=== PATIENT | male | born 1945 | race Caucasian/White ===

== ENCOUNTER 2016-11-09 09:55 | Inpatient (IN) | payer SELFPAY ==
[~2016-11-09] VITALS: Ht 144.8 cm; Wt 53.3 kg
[2016-11-09] MEDS ORDERED: TIMO.25OS OU (10:07)
[2016-11-09] MEDS ORDERED: HYDR10TA31 PO (10:07)
[2016-11-09] MEDS ORDERED: ISOS20TA9 PO (10:07)
[2016-11-09] MEDS ORDERED: ASPI-1093 PO (10:07)
[2016-11-09] MEDS ORDERED: CARV6 PO (10:07)
[2016-11-09] MEDS ORDERED: LISI-661 PO (10:07)
[2016-11-09 10:23] LABS: BASOPHILS # (AUTO) 0.02 K/uL (0.00-0.20); BASOPHILS % (AUTO) 0.3 % (0.0-2.0); EOSINOPHILS # (AUTO) 0.17 K/uL (0.00-0.70); EOSINOPHILS % (AUTO) 2.67 % (1.0-6.0); HEMATOCRIT 31.6 % (41-53); HEMOGLOBIN 10.4 g/dL (13.5-17.5); LYMPHOCYTES # (AUTO) 0.7 K/uL (1.0-4.8); LYMPHOCYTES % (AUTO) 9.9 % (22.0-44.0); MEAN CORPUSCULAR HEMOGLOBIN 30.3 pg (26.0-34.0); MEAN CORPUSCULAR HGB CONC 32.9 G/dL (31.0-37.0); MEAN CORPUSCULAR VOLUME 92 fL (80-100); MONOCYTES # (AUTO) 0.6 K/uL (0.1-1.0); MONOCYTES % (AUTO) 9.3 % (2.0-9.0); NEUTROPHILS # (AUTO) 5.1 K/uL (1.8-7.7); NEUTROPHILS % (AUTO) 77.8 % (40.0-70.0); PLATELET COUNT (AUTO) 128 K/uL (150-450); RED BLOOD CELL COUNT(AUTO) 3.43 MIL/uL (4.50-5.90); RED CELL DISTRIBUTION WIDTH 14.7 % (11.5-14.5); WHITE BLOOD COUNT (AUTO) 6.5 K/uL (4.5-11.0)
[2016-11-09 10:34] LABS: INR 1.1 (0.9-1.1); PROTHROMBIN TIME 11.7 SEC (9.4-11.6)
[2016-11-09 10:38] LABS: ANION GAP 6 mmol/L (8-16); CALCIUM, TOTAL 8.5 mg/dL (8.8-10.5); CARBON DIOXIDE 36 mmol/L (22-29); CHLORIDE 98 mmol/L (98-107); CREATININE 3.78 mg/dL (0.60-1.30); GLOMERULAR FILTR. RATE CALC 16 mL/min (>60); POTASSIUM 3.7 mmol/L (3.5-5.1); SODIUM SERUM 140 mmol/L (136-145); UREA NITROGEN, BLOOD 32 mg/dL (7-18)
[2016-11-09 10:39] LABS: B-TYPE NATRIURETIC PEPTIDE 1190 pg/mL (0-100)
[2016-11-09 10:44] LABS: ALANINE AMINOTRANSFERASE 16 U/L (12-78); ALBUMIN 3.2 g/dL (3.4-5.0); ASPARTATE AMINOTRANSFERASE 16 U/L (15-37); BILIRUBIN,TOTAL 0.6 mg/dL (0.1-1.0); CREATINE KINASE, TOTAL 39 U/L (39-308)
[2016-11-09 14:33] LABS: GLUCOSE,POINT OF CARE 128 MG/DL (70-110)
[2016-11-09 15:25] VITALS: BP 154/60
[2016-11-09] MEDS ORDERED: DEXTROSE 50%-WATER 25 GM/50 ML SYRINGE IVP PRN (17:00)
[2016-11-09] MEDS ORDERED: HYDR25TA84 PO (17:05)
[2016-11-09 17:27] LABS: GLUCOSE COMMENT 1 Received Meds; GLUCOSE,POINT OF CARE 161 MG/DL (70-110)
[2016-11-09] MEDS: INSULIN ASPART 100 UNITS/ML SQ PRN ×2 (17:58→20:20)
[2016-11-09] MEDS ORDERED: ACETAMINOPHEN 325 MG TABLET PO PRN ×2 (18:30→19:15)
[2016-11-09] MEDS ORDERED: MAGNESIUM HYDROXIDE SUSPENSION 30 ML UDCUP PO PRN (19:15)
[2016-11-09] MEDS ORDERED: ONDANSETRON HCL 4 MG/2 ML VIAL IVP PRN (19:15)
[2016-11-09] MEDS ORDERED: OxyCODONE HCL/ACETAMINOPHEN 5-325 MG TABLET PO PRN ×2 (19:15)
[2016-11-09] MEDS ORDERED: 0.9% SODIUM CHLORIDE 10 ML SYRINGE IVP PRN (19:15)
[2016-11-09 19:39] VITALS: BP 165/63
[2016-11-09] MEDS: PANTOPRAZOLE SODIUM 40 MG/VIAL IVP SCH (20:09)
[2016-11-09] MEDS: ISOSORBIDE DINITRATE 20 MG TABLET PO SCH (20:10)
[2016-11-09] MEDS: ASPIRIN 81 MG EC TABLET PO SCH (20:10)
[2016-11-09] MEDS: TIMOLOL MALEATE 0.25% 5 ML OPHTHALMIC SOLUTION OU SCH (20:10)
[2016-11-09] MEDS: DOCUSATE SODIUM 100 MG CAPSULE PO SCH (20:10)
[2016-11-09 23:45] VITALS: BP 158/61
[2016-11-10 01:25] VITALS: BP 144/68
[2016-11-10 05:48] VITALS: BP 158/73
[2016-11-10 05:58] LABS: BASOPHILS % (AUTO) 0.3 % (0.0-2.0); EOSINOPHILS % (AUTO) 5.2 % (1.0-6.0); HEMATOCRIT 29.7 % (41-53); HEMOGLOBIN 9.9 g/dL (13.5-17.5); LYMPHOCYTES # (AUTO) 1.1 K/uL (1.0-4.8); LYMPHOCYTES % (AUTO) 18.1 % (22.0-44.0); MEAN CORPUSCULAR HEMOGLOBIN 30.3 pg (26.0-34.0); MEAN CORPUSCULAR HGB CONC 33.4 G/dL (31.0-37.0); MEAN CORPUSCULAR VOLUME 91 fL (80-100); MONOCYTES # (AUTO) 0.6 K/uL (0.1-1.0); MONOCYTES % (AUTO) 8.9 % (2.0-9.0); NEUTROPHILS # (AUTO) 4.2 K/uL (1.8-7.7); NEUTROPHILS % (AUTO) 67.5 % (40.0-70.0); PLATELET COUNT (AUTO) 120 K/uL (150-450); RED BLOOD CELL COUNT(AUTO) 3.28 MIL/uL (4.50-5.90); RED CELL DISTRIBUTION WIDTH 15.4 % (11.5-14.5); WHITE BLOOD COUNT (AUTO) 6.2 K/uL (4.5-11.0)
[2016-11-10 06:15] LABS: CALCIUM, TOTAL 8.6 mg/dL (8.8-10.5); CREATININE 4.85 mg/dL (0.60-1.30); POTASSIUM 4.1 mmol/L (3.5-5.1)
[2016-11-10 07:42] VITALS: BP 163/63
[2016-11-10] MEDS ORDERED: SODIUM CHLORIDE 0.9% 2,000 ML IV ONE (08:48)
[2016-11-10] MEDS ORDERED: ASPIRIN 81 MG EC TABLET PO SCH (09:00)
[2016-11-10] MEDS: TIMOLOL MALEATE 0.25% 5 ML OPHTHALMIC SOLUTION OU SCH (12:20)
[2016-11-10] MEDS: DOCUSATE SODIUM 100 MG CAPSULE PO SCH (12:21)
[2016-11-10] MEDS: ASPIRIN 81 MG EC TABLET PO SCH (12:21)
[2016-11-10] MEDS: PANTOPRAZOLE SODIUM 40 MG/VIAL IVP SCH (12:21)
[2016-11-10] MEDS: ISOSORBIDE DINITRATE 20 MG TABLET PO SCH (12:21)
[2016-11-10] MEDS: INSULIN ASPART 100 UNITS/ML SQ PRN (12:22)
[2016-11-10] MEDS ORDERED: VITAMIN B COMP/VIT C/FOLIC ACID CAPSULE PO SCH (12:30)
[2016-11-10 15:41] VITALS: BP 143/55
[2016-11-10 16:22] VITALS: BP 144/68
[2016-11-10] MEDS ORDERED: FOLI1CAP2 PO (17:38)
[2016-11-12 09:36] LABS: GLUCOSE,POINT OF CARE 120 MG/DL (70-110)
[2016-11-12 10:02] LABS: GLUCOSE COMMENT 1 Received Meds; GLUCOSE,POINT OF CARE 194 MG/DL (70-110)
[2016-11-12 10:03] LABS: GLUCOSE COMMENT 1 Received Meds; GLUCOSE,POINT OF CARE 165 MG/DL (70-110)
[2016-11-13 09:17] LABS: GLUCOSE COMMENT 1 Received Meds; GLUCOSE,POINT OF CARE 168 MG/DL (70-110)
== END 2016-11-10 19:00 | disposition home or self-care (01) | DRG 312 ==
LOC: EMS 10:00 → 5S 15:06
PROVIDERS: ADMIT Internal Medicine; ATTEND Internal Medicine
PROC: 5A1D00Z (ICD-10-PCS; principal; 2016-11-09)
DX: I95.3 Hypotension of hemodialysis (principal); E44.0 Moderate protein-calorie malnutrition; N18.6 End stage renal disease; I12.0 Hypertensive chronic kidney disease with stage 5 chronic kidney disease or end stage renal disease; E11.22 Type 2 diabetes mellitus with diabetic chronic kidney disease; D64.9 Anemia, unspecified; Z99.2 Dependence on renal dialysis; Z68.25 Body mass index [BMI] 25.0-25.9, adult
CPT/HCPCS: 70450; 82962; 87081; 93005; 93306; 93880; 99285; C9113; J7030